=== PATIENT | male | born 1975 | race Two or more races ===

== ENCOUNTER 2022-12-17 10:51 | Emergency (ER) | payer MEDICAID ==
[~2022-12-17] VITALS: Ht 167.6 cm; Wt 83.5 kg
[2022-12-17] MEDS ORDERED: HYDROCODONE/APAP 5/325MG TABLET PO ONE (12:00)
[2022-12-17] MEDS ORDERED: HYDROCODONE/APAP 5/325MG TABLET ONE (12:15)
[2022-12-17] MEDS ORDERED: IBUP-1953 PO (12:46)
[2022-12-17 13:03] VITALS: BP 142/78; TEMP 98.4; O2SAT 98
== END 2022-12-17 12:45 | disposition home or self-care (01) ==
LOC: ER 10:51
DX: S50.02XA Contusion of left elbow, initial encounter (principal); J45.909 Unspecified asthma, uncomplicated; W22.8XXA Striking against or struck by other objects, initial encounter; Y93.89 Activity, other specified; Y92.89 Other specified places as the place of occurrence of the external cause; Y99.8 Other external cause status
CPT/HCPCS: 73080-TC